=== PATIENT | female | born 1975 | race Caucasian/White ===

== ENCOUNTER 2017-10-20 21:01 | Emergency (ER) | payer SELFPAY ==
[2017-10-20] MEDS: HYDROcodone/APAP 5/325MG 1 TAB TABLET PO (21:13)
== END 2017-10-20 22:36 | disposition home or self-care (01) ==
LOC: ER 21:01
DX: S69.91XA Unspecified injury of right wrist, hand and finger(s), initial encounter (principal); F32.9 Major depressive disorder, single episode, unspecified; F43.10 Post-traumatic stress disorder, unspecified; F41.9 Anxiety disorder, unspecified; Z98.51 Tubal ligation status; W23.1XXA Caught, crushed, jammed, or pinched between stationary objects, initial encounter; Y93.89 Activity, other specified; Y92.89 Other specified places as the place of occurrence of the external cause; Y99.8 Other external cause status
CPT/HCPCS: 73130; 99284

== ENCOUNTER 2017-12-01 03:48 | Emergency (ER) | payer SELFPAY ==
[2017-12-01] MEDS: KETOROLAC 30 MG/ML INJ. IV (05:52)
[2017-12-01] MEDS: CYCLOBENZAPRINE 10 MG TABLET. PO (07:00)
== END 2017-12-01 07:00 | disposition home or self-care (01) ==
LOC: ER 03:48
DX: S39.012A Strain of muscle, fascia and tendon of lower back, initial encounter (principal); F31.9 Bipolar disorder, unspecified; F41.9 Anxiety disorder, unspecified; Z98.51 Tubal ligation status; W01.0XXA Fall on same level from slipping, tripping and stumbling without subsequent striking against object, initial encounter; Y93.89 Activity, other specified; Y92.89 Other specified places as the place of occurrence of the external cause; Y99.8 Other external cause status
CPT/HCPCS: 72131; 96374; 99284; J1885

== ENCOUNTER 2018-02-06 21:04 | Emergency (ER) | payer SELFPAY ==
[~2018-02-06] VITALS: Ht 167.6 cm; Wt 74.8 kg
[~2018-02-06 21:04] MED LIST: ALPR1TAB6 PO; AMIT50TA PO; CITA10TA4 PO; CITA20TA6 PO; CYCL10TA2 PO; HYDR-2766 PO; HYDR-971 PO; IBUP-1060 PO; MELO15TA23 PO; NAPR-683 PO; OFLO5DRO OS; SUMA100T4 PO; TRAM50TA PO
[2018-02-06 21:10] VITALS: BP 128/60
--- NOTE | 2018-02-06 21:50 | PHYS DOC ---
Past Medical History Past Medical History: Anxiety, Bipolar, Depression Additional Past Medical Histor: PTSD Past Surgical History: Tubal ligation Additional Past Surgical Histo: DENTAL Alcohol Use: None Drug Use: None Adult General Chief Complaint Chief Complaint: SORE THROAT HPI HPI 42-year-old female presents for evaluation of sore throat since yesterday. Her has had similar symptoms this past week. She states has had intermittent cough yesterday. She does not smoke cigarettes. She has not had any fevers. Review of Systems Review of Systems Constitutional: Denies fever or chills [] Eyes: Denies change in visual acuity, redness, or eye pain [] Cardiovascular: No additional information not addressed in HPI [] GI: Denies abdominal pain, nausea, vomiting, bloody stools or diarrhea [] : Denies dysuria or hematuria [] Musculoskeletal: Denies back pain or joint pain [] Integument: Denies rash or skin lesions [] Neurologic: Denies headache, focal weakness or sensory changes [] Endocrine: Denies polyuria or polydipsia [] All other systems were reviewed and found to be within normal limits, except as documented in this note. Allergies Allergies Allergies Coded Allergies Type Severity Reaction Last Updated Verified No Known Drug Allergies 04/01/14 No Physical Exam Physical Exam Constitutional: Well developed, well nourished, no acute distress, non-toxic appearance. [] HENT: Normocephalic, atraumatic, bilateral external ears normal, oropharynx erythematous, no oral exudates, nose normal. [] Neck: Normal range of motion, no tenderness, supple, no stridor. [] Cardiovascular:Heart rate regular rhythm, no murmur [] Lungs & Thorax: Bilateral breath sounds clear to auscultation [] Skin: Warm, dry, no erythema, no rash. [] Back: No tenderness, no CVA tenderness. [] Neurologic: Alert and oriented X 3, normal motor function, normal sensory function, no focal deficits noted. [] Psychologic: Affect normal, judgement normal, mood normal. [] Current Patient Data Vital Signs Vital Signs Date Time Temp Pulse Resp B/P (MAP) Pulse Ox O2 Delivery O2 Flow Rate FiO2 02/06/18 21:10 97.9 68 16 128/60 (82) 100 Room Air 97.9 EKG EKG [] Radiology/Procedures Radiology/Procedures [] Impressions: Viral Pharyngitis Course & Med Decision Making Course & Med Decision Making Pertinent Labs and Imaging studies reviewed. (See chart for details) [Vital signs are stable, patient is afebrile and nontoxic in appearance. Patient has rapid strep test pending, patient care is signed over to Phuong Hodges NP at 2300. Rapid strep negative. Continues to have a non toxic appearance with stable vital signs. We discussed follow up in 1-2 days and to return immediately with problems or concerns. Dragon Disclaimer Dragon Disclaimer This electronic medical record was generated, in whole or in part, using a voice recognition dictation system. Departure Departure Impression: Primary Impression: Pharyngitis Disposition: 01 HOME, SELF-CARE Condition: STABLE Referrals: JOSE LUIS AUGUSTE MD (PCP) Patient Instructions: Viral Pharyngitis JUHI SORENSON APRN Feb 06, 2018 21:50 PHUONG HODGES APRN Feb 07, 2018 01:07
== END 2018-02-07 00:25 | disposition home or self-care (01) ==
LOC: ER 21:04
DX: J02.8 Acute pharyngitis due to other specified organisms (principal); B97.89 Other viral agents as the cause of diseases classified elsewhere; F41.9 Anxiety disorder, unspecified; F31.9 Bipolar disorder, unspecified; Z98.51 Tubal ligation status
CPT/HCPCS: 87070; 87880; 99283

== ENCOUNTER 2020-02-04 13:01 | Emergency (ER) | payer SELFPAY ==
[~2020-02-04] VITALS: Ht 165.1 cm; Wt 65.0 kg
[~2020-02-04 13:01] MED LIST changes: -HYDR-2766 PO; +HYDR-2769 PO; +HYDR-3164 PO; -HYDR-971 PO
[2020-02-04 13:20] VITALS: BP 159/78
[2020-02-04] MEDS ORDERED: FLUORESCEIN OPHTH TEST STRIP. OD ONE (13:45)
[2020-02-04] MEDS ORDERED: TETRACAINE 0.5% OPHTH SOLUTION 4ML BOTTLE. OD ONE (13:45)
--- NOTE | 2020-02-04 14:18 | PHYS DOC ---
Past Medical History Past Medical History: Anxiety, Bipolar, Depression, Hypertension, Migraines Additional Past Medical Histor: PTSD Past Surgical History: Tubal ligation Additional Past Surgical Histo: DENTAL Smoking Status: Never Smoker Alcohol Use: None Drug Use: None General Adult EDM: Chief Complaint: EYE PROBLEMS HPI: HPI: Patient is a 44 year old female patient who presents to the ED today complaining of right eye irritation. Patient states she developed sensation of itching to the right upper eye a couple hours prior to coming to the ED. She states the eye was also teary. Patient denies any vision loss. States as a result of itching the eyes now painful and irritated. Patient denies any fever, coughing or congestion. Review of Systems: Review of Systems: Constitutional: Denies fever or chills. [] Eyes: Reports right eye irritation including itching, painful, tearing. Denies change in visual acuity. [] Musculoskeletal: Denies back pain or joint pain. [] Integument: Denies rash. [] Neurologic: Denies headache, focal weakness or sensory changes. [] Psychiatric: Denies depression or anxiety. [] Heart Score: Risk Factors: Risk Factors: DM, Current or recent (<one month) smoker, HTN, HLP, family history of CAD, obesity. Risk Scores: Score 0 - 3: 2.5% MACE over next 6 weeks - Discharge Home Score 4 - 6: 20.3% MACE over next 6 weeks - Admit for Clinical Observation Score 7 - 10: 72.7% MACE over next 6 weeks - Early Invasive Strategies Current Medications: Current Medications Medications (Trade) Dose Ordered Sig/[facility] Start Time Stop Time Status Last Admin Dose Admin Fluorescein Sodium (Ful-Lidia) 1 strip 1X ONCE 02/04/20 13:45 02/04/20 13:46 DC 02/04/20 13:41 1 STRIP Tetracaine HCl (Tetracaine) 1 drop 1X ONCE 02/04/20 13:45 02/04/20 13:46 DC 02/04/20 13:41 1 DROP Allergies: Allergies: Allergies Coded Allergies Type Severity Reaction Last Updated Verified No Known Drug Allergies 04/01/14 No Physical Exam: PE: Constitutional: Well developed, well nourished, no acute distress, non-toxic appearance. [] HENT: Normocephalic, atraumatic, bilateral external ears normal, oropharynx moist, no oral exudates, nose normal. [] Eyes: PERRLA, EOMI, right conjunctive is slightly injected mostly irritation from itching, patient is actively itching the right eye, clear drainage noted to the right eye. Innerchambers are normal to the right eye. Pressure to the right eye is normal. Right eye exam under Dukes lamp-no foreign objects or corneal abrasions were noted Skin: Warm, dry, no erythema, no rash. [] Back: No tenderness, no CVA tenderness. [] Extremities: No tenderness, no cyanosis, no clubbing, ROM intact, no edema. [] Neurologic: Alert and oriented X 3, normal motor function, normal sensory function, no focal deficits noted. [] Psychologic: Affect normal, judgement normal, mood normal. [] Current Patient Data: Vital Signs: Vital Signs Date Time Temp Pulse Resp B/P (MAP) Pulse Ox O2 Delivery O2 Flow Rate FiO2 02/04/20 13:20 97.7 81 16 159/78 (105) 96 Room Air 97.7 EKG: EKG: [] Radiology/Procedures: Radiology/Procedures: Indication: Right eye irritation Procedure: The area of the foreign body was right eye. Local anesthesia over the foreign body site was tetracaine, the eye was stained with fluorescein. No foreign object or corneal abrasions were noted. The patient's tetanus status up-to-date The patient tolerated the procedure well Complications: None Course & Med Decision Making: Course & Med Decision Making Pertinent Labs and Imaging studies reviewed. (See chart for details) This is a 44-year-old female patient presenting to the ED today with right eye irritation that began sometime this morning. Right eye exam is negative. Patient states she follows up with the assistant passenger locomotive engineer at [facility]. She states she will call and get an appointment this week. She was di scharged to home. Zaditor rx provided. Dragon Disclaimer: Riya Disclaimer: This electronic medical record was generated, in whole or in part, using a voice recognition dictation system. Departure Departure Impression: Primary Impression: Irritation of right eye Disposition: HOME, SELF-CARE Condition: STABLE Referrals: JOSE LUIS AUGUSTE MD (PCP) SHWETA LEDBETTER MD follow up in the course of this week Patient Instructions: Eye Foreign Body-SportsMed Additional Instructions: You have right eye irritation. Use the prescribed medication as ordered. Please follow-up with the assistant passenger locomotive engineer in the course of this week. Scripts Ketotifen Fumarate (ZADITOR) 5 Ml Drops 1 DROP RIGHTEYE BID, #5 ML 1 Refill Prov: JENY SANTIAGO APRN 02/04/20 Justicifation of Admission Dx: Justifications for Admission: Justification of Admission Dx: N/A JENY SANTIAGO APRN Feb 04, 2020 14:18
[2020-02-04] MEDS ORDERED: KETO5DRO4 RIGHTEYE (14:21)
== END 2020-02-04 14:23 | disposition home or self-care (01) ==
LOC: ER 13:01
DX: H57.89 Other specified disorders of eye and adnexa (principal); R20.2 Paresthesia of skin; L29.9 Pruritus, unspecified; F41.9 Anxiety disorder, unspecified; F32.9 Major depressive disorder, single episode, unspecified; I10 Essential (primary) hypertension; G43.909 Migraine, unspecified, not intractable, without status migrainosus; F43.12 Post-traumatic stress disorder, chronic; Z98.890 Other specified postprocedural states; Z98.51 Tubal ligation status
CPT/HCPCS: 99283